=== PATIENT | female | born 1985 | race Hispanic/Latino ===

== ENCOUNTER 2022-12-23 22:09 | Emergency (ER) | payer SELFPAY ==
[~2022-12-23] VITALS: Ht 157.5 cm; Wt 61.2 kg
[2022-12-23] MEDS ORDERED: CYCLOBENZAPRINE5 MG PO (22:24)
[2022-12-23] MEDS ORDERED: NAPROSYN500 MG PO (22:24)
[2022-12-23] MEDS ORDERED: KETOROLAC TROMETHAMINE 60 MG/2 ML VIAL IM ONE (22:30)
[2022-12-23 22:54] LABS: CLARITY,URINE CLEAR (CLEAR); COLOR,URINE YELLOW (YELLOW); KETONES,URINE NEGATIVE (NEGATIVE); LEUKOCYTE ESTERASE ,URINE NEGATIVE (NEGATIVE); NITRITE,URINE NEGATIVE (NEGATIVE); PROTEIN,URINE DIPSTICK NEGATIVE (NEGATIVE); URINE UROBILINOGEN 0.2 mg/dL (0.2 - 1)
[2022-12-23 23:00] LABS: BACTERIA,URINE RARE /HPF; EPITHELIAL CELLS,URINE MODERATE /LPF; WBC,URINE (MAN) 0-5 /HPF (0-5)
[2022-12-23 23:47] VITALS: PULSE 67; RESP 19; O2SAT 100
== END 2022-12-23 23:50 | disposition home or self-care (01) ==
LOC: ER 22:23
DX: R31.9 Hematuria, unspecified (principal); M54.41 Lumbago with sciatica, right side; G89.29 Other chronic pain
CPT/HCPCS: 36415; 81001; 82948; 99283; J1885